=== PATIENT | female | born 1980 | race Caucasian/White ===

== ENCOUNTER 2023-05-17 22:24 | Inpatient (IN) | payer OTHER, SELFPAY ==
--- NOTE | ~2023-05-17 | US_ITS ---
EXAMINATION: US venous doppler [facility] DATE: 05/21/2023 14:46 INDICATION: Left lower limb edema. TECHNIQUE: Grayscale ultrasound images without and with compression and Doppler ultrasound images of the left lower extremity veins were obtained. COMPARISON: Ultrasound 06/07/2008 FINDINGS: The visualized portions of left common femoral vein, profunda (deep) femoral vein, femoral vein, popl iteal vein, peroneal veins, posterior tibial veins, and greater saphenous vein outflow are patent. IMPRESSION: 1. No deep venous thrombosis. Reviewed, dictated and finalized at location A.
--- NOTE | ~2023-05-17 | XR_ITS ---
Left ankle Technique: AP, oblique, and lateral views were obtained. Clinical History: Pain and swelling Findings: No acute fracture or dislocation is seen. Osseous alignment is anatomic. Ankle mortise and other visualized joint spaces are preserved. Diffuse subcutaneous soft tissue edema noted. Impression: No osseous or articular abnormality. Diffuse subcutaneous soft tissue edema. Reviewed, dictated and finalized at [facility]. Impression: No osseous or articular abnormality. Diffuse subcutaneous soft tissue edema.
--- NOTE | ~2023-05-17 | XR_ITS ---
Left foot Technique: AP, oblique, and lateral views were obtained. Clinical History: Pain swelling Findings: No acute fracture or dislocation is seen. Osseous alignment is anatomic. Joint spaces are p reserved without erosive or degenerative change. There is marked dorsal soft tissue swelling of the f oot. Impression: No osseous or articular abnormality seen. Marked dorsal soft tissue swelling of the foot. Reviewed, dictated and finalized at location [facility]. Impression: No osseous or articular abnormality seen. Marked dorsal soft tissue swelling of the foot.
--- NOTE | ~2023-05-17 | MR_ITS ---
MRI of the left foot CLINICAL HISTORY: Wound, osteomyelitis TECHNIQUE: Axial T1-weighted and T2 fat-sat images, sagittal T1-weighted and STIR images, and coronal T1-weighted and T2 fat-sat images were acquired. FINDINGS: Bone marrow signals are unremarkable. No evidence for osteomyelitis. No fracture or bone ma rrow edema seen. Joint spaces are preserved. No joint effusion. Flexor and extensor tendons appear intact. There is mild edematous change of the plantar musculature of the foot. There is marked, diffuse dorsal subcutaneous soft tissue edema fluid extending to the an kle. No definite abscess identified. Plantar fascia is intact. No intermetatarsal bursitis or Carranza' s neuroma. IMPRESSION: No evidence for osteomyelitis or abscess. Marked, diffuse dorsal subcutaneous soft tissue edema extending to the ankle. Reviewed, dictated and finalized at [facility].
--- NOTE | ~2023-05-17 | XR_ITS ---
AP and lateral views of the pain swelling tibia/fibula Clinical History: Trauma Findings: No acute fracture or dislocation is seen. Osseous alignment is anatomic. Joint spaces are p reserved without significant erosive or degenerative change. There is diffuse subcutaneous soft tissu e edema. Impression: Diffuse subcutaneous soft tissue edema. No osseous or articular abnormality. Reviewed, dictated and finalized at [facility]. Impression: Diffuse subcutaneous soft tissue edema. No osseous or articular abnormality.
[2023-05-17 22:26] VITALS: BP 134/82; PULSE 90; RESP 15; TEMP 36.5; O2SAT 100
--- NOTE | 2023-05-17 22:58 | ED.GENADULT ---
HPI - General Adult General Chief complaint: Extremity Problem,Nontraumatic Stated complaint: extrem Time Seen by Provider: 05/17/23 22:48 History of Present Illness HPI narrative: Patient 43-year-old female presents emerged department with chief complaint of cellulitis to left lower extremity. Patient reports she has prior history of cellulitis and is required admissions before in the past with MRSA infections. Patient reports that she was seen in [place] over the weekend and had redness and swelling in her left leg patient thinks that it may have been associated to a wasp sting that she had on the fourth patient reports she had redness up to her thigh and reports that she had redness down to her ankle and the patient reports that the redness in the thigh area has improved but now she has significant edema and swelling of her left foot and reports that it is very red and she reports she had subjective and low-grade fevers at home. The patient reports has been compliant with the doxycycline that she was prescribed at [place] and reported that she is concerned that she may be not improving with the Doxy. Related Data Allergies Allergy/AdvReac Type Severity Reaction Status Date / Time codeine Allergy Unknown ITCHING Verified 02/20/15 10:45 promethazine Allergy Unknown Unknown Verified 05/17/23 22:39 Review of Systems Review of Systems: A 10 system review of systems was completed on the patient and is negative except for what is stated in the HPI. Nursing and ancillary documentation was reviewed. [facility]LY [facility] Family History Family History Other Diabetes mellitus Social History Social History Alcohol intake: never Exam Narrative: GENERAL: Well-appearing, well-nourished, and in no acute distress. HEAD: Normocephalic, atraumatic. EYES: PERRLA and EOMI. ENT: Nares clear, no rhinorrhea or epistaxis. Mucous membranes moist. NECK: Supple. CHEST: Clear to auscultation. No respiratory distress. HEART: Regular rate and rhythm. No murmur heard. Normal peripheral pulses. ABDOMEN: Soft, nontender, nondistended, normal active bowel sounds. EXTREMITIES: Redness and swelling below the knee on the left lower extremity. There is significant edema of the left foot area there is weeping from the tissue there is no crepitance there is no fluctuance present. SKIN: Warm, dry, no rash. NEURO: No focal deficits. Alert and oriented x3. PSYCH: Normal mood and affect. Course Vital Signs Vital signs: Vital Signs Temperature 36.5 C 05/17/23 22:26 Pulse Rate 90 05/17/23 22:26 Respiratory Rate 15 05/17/23 22:26 Blood Pressure 134/82 05/17/23 22:26 Pulse Oximetry 100 05/17/23 22:26 Oxygen Delivery Room Air 05/17/23 22:26 Temperature 36.5 C 05/17/23 22:26 Pulse Rate 62 05/17/23 23:43 Respiratory Rate 18 05/17/23 23:43 Blood Pressure 116/78 05/17/23 23:43 Pulse Oximetry 99 05/17/23 23:43 Oxygen Delivery Room Air 05/17/23 22:26 Medical Decision Making MDM Narrative Medical decision making narrative: Differential diagnosis: Cellulitis, fracture, Laboratory studies were obtained and the patient showed a white count of 8.9 hemoglobin was low at 7.8 electrolytes showed normal lactic acid of 0.6 C-reactive protein was 16.6 and sed rate was elevated as well at 85 urinalysis did show UTI with 21-50 whites in the urine. Patient was empirically started on vancomycin and Zosyn was added to the antibiotic blood cultures have been obtained Plan: X-rays of the ankle foot and tib-fib showed no evidence of fracture and no evidence of gas The case was discussed with Dr. Driscoll of the hospitalist service and the patient will be admitted to the hospital. Vital Signs Vital Signs: Vital Signs Temperature 36.5 C 05/17/23 22:26 Pulse Rate 90 05/17/23 22:26 Respiratory Rate 1
[2023-05-17 23:43] VITALS: BP 116/78; PULSE 62; RESP 18; O2SAT 99
[2023-05-17 23:46] LABS: Basophils Absolute Auto 0.1 K/mm3 (0.0-0.1); Basophils Percent Auto 0.6 % (0.2-1.2); Eosinophils Absolute Auto 0.2 K/mm3 (0-0.3); Eosinophils Percent Auto 2.1 % (0-4.4); Hematocrit 26.4 % (37.0-47.0); Hemoglobin 7.8 g/dL (12.0-15.0); Immature Granulocyte Absolute 0.08 K/mm3 (0.00-0.031); Immature Granulocyte Percent A 0.9 % (0-0.5); Lymphocytes Absolute Auto 1.82 K/mm3 (0.9-3.2); Lymphocytes Percent Auto 20.5 % (18.3-44.2); Mean Corpuscular HGB Conc 29.5 g/dl (32-36); Mean Corpuscular Hemoglobin 20.3 pg (26-34); Mean Corpuscular Volume 68.6 fl (80-100); Mean Platelet Volume 10.9 fl (7.4-10.4); Monocytes Absolute Auto 1.2 K/mm3 (0.1-0.6); Neutrophils Absolute Auto 5.6 K/mm3 (1.3-6.7); Neutrophils Percent Auto 62.9 % (45.5-73.1); Platelet Count Result 346 k/mm3 (150-375); Red Blood Count 3.85 M/mm3 (4.2-5.4); Red Cell Distribution Width 18.1 % (11.5-14.5); White Blood Count 8.9 K/mm3 (4.5-10.0)
[2023-05-17] MEDS: SODIUM CHLORIDE 0.9% IV 1,000 ML 999 ML IV CONT (23:47)
[2023-05-17] MEDS: MORPHINE SULFATE (*CRX) 4 MG/ML INJ IV PUSH (23:48)
[2023-05-17 23:53] LABS: Appearance Urine Cloudy (Clear); Bacteria Urine 2+ /hpf; Bilirubin Urine 1+ (Negative); Blood Urine Negative (Negative); Color Urine Dark Yellow (Yellow); Glucose Urine UA Negative (Negative); Ketones Urine Trace mg/dL (Negative); Leukocyte Esterase Ur 1+ LEU/UL (Negative); Nitrate Urine Negative (Negative); Non Pathogenic Casts 0-2; Protein Urine Trace mg/dL (Negative); RBC Urine 0-2 /hpf (0-2); Specific Grav Ur 1.023 (1.001-1.035); Squamous Epithelial Cell Urine Moderate /hpf (Few); WBC Urine 21-50 /hpf
[2023-05-17 23:59] LABS: Add Urine Microscopic? YES
[2023-05-18] VITALS (7 sets, daily range): BP systolic 92–117; BP diastolic 50–71; PULSE 55–97; RESP 14–22; TEMP 36.6–36.8; O2SAT 98–100; BMI 35.9
[2023-05-18 00:04] LABS: Anisocytosis 1+ (NORMAL); Lactic Acid Reflex 0.6 mmol/L (0.7-2.0); Platelet Estimate Adequate (Adequate); Poikilocytosis 1+ (NORMAL); Schistocytes None Seen (NORMAL)
[2023-05-18 00:05] LABS: Hypochromasia 1+ (NORMAL)
[2023-05-18 00:08] LABS: Alanine Aminotransferase 22 U/L (6-35); Albumin Level 4.1 g/dL (3.5-5.1); Alkaline Phosphatase 45 U/L (38-126); Anion Gap 7 mmol/L (8-16); Aspartate Amino Transferase 43 U/L (14-36); Bilirubin,Total 0.4 mg/dL (0.2-1.3); Blood Urea Nitrogen 19 mg/dL (7-17); Calcium 8.2 mg/dL (8.4-10.2); Carbon Dioxide 26 mmol/L (22-30); Chloride 104 mmol/L (98-107); Estimated CRCL calculation 96 ml/min; Estimated Glomerular Filt Rate > 60; Glucose 94 mg/dL (65-110); Potassium 3.9 mmol/L (3.4-5.0); Sodium 137 mmol/L (137-145)
[2023-05-18 00:29] LABS: Erythrocyte Sedimentation Rate 85 mm/hr (0-20)
[2023-05-18 00:35] LABS: CRP 16.6 mg/dL (<1.0)
[2023-05-18] MEDS: PIPERACILLN/TAZ 3.375GM/NS50ML 3.375 GM/50 ML BAG IVPB ×4 (00:55→18:56)
--- NOTE | 2023-05-18 01:29 | PM.IMHP ---
H&P: HPI History of Present Illness Date/Time: 05/18/23 01:29 Chief Complaint: Leg tenderness Narrative: This is a 43-year-old female with past medical history significant for obesity, patient is status post gastric bypass. Presents today to the emergency room due to left lower extremity tenderness warmth erythema that started on went to [place] and was started on doxycycline and discharged home however patient has notice worsening of these redness swelling and tenderness has had chills, nausea and vomiting. PRELIMINARY WORKUP WAS SIGNIFICANT FOR A HEMOGLOBIN OF 7.8 MCV OF 68, A URINALYSIS WAS SIGNIFICANT FOR NUMEROUS WBCS PRESENT. PATIENT HAS BEEN ADMITTED FOR FURTHER EVALUATION MANAGEMENT AND TREATMENT. Review of Systems Review of Systems: LEFT LOWER EXTREMITY REDNESS, WARMTH, TENDERNESS, SWELLING Constitutional: Constitutional: Reports chills, Denies fatigue, Reports malaise, Denies night sweats and Denies poor appetite Eyes: Eyes: Denies change in vision ENT: Denies dysphagia and Denies odynophagia Cardiovascular: Cardiovascular: Denies chest pain, Denies radiating jaw, neck or arm pain and Denies palpitations Respiratory: Respiratory: Denies cough, Denies excessive phlegm production and Denies dyspnea Gastrointestinal: Gastrointestinal: Denies abdominal pain, Denies dyspepsia, Denies heartburn, Denies diarrhea, Denies nausea and Denies vomiting Genitourinary: Genitourinary: Reports no additional female genitourinary complaints, Reports as per HPI and Denies dysuria Musculoskeletal: Musculoskeletal: Denies myalgias Integumentary/Breasts: Skin/Breast: Reports erythema, Reports skin pain and Reports skin swelling Neurologic: Denies focal weakness and Denies Sensory deficit (Neuro) Psychiatric: Psychiatric: Reports no additional psychiatric complaints and Reports as per HPI Endocrine: Endocrine: Denies cold intolerance, Denies flushing, Denies heat intolerance, Denies polyphagia, Denies polydipsia and Denies palpitations Hematologic/Lymphatic: Hematologic/Lymphatic: Reports no additional hematologic/lymphatic complaints and Reports as per HPI Allergic/Immunologic: Allergic/Immunologic: Reports no additional allergic/immunologic complaints and Reports as per HPI PMF Family History Family History Other Diabetes mellitus Social History Social History Smoking status: Never smoker Alcohol intake: never Substance use type: other Other substance usage details: THC Last use: 05/15/2023 Lack of Transportation: No Lack of Food: Never True Current Housing: I Have Housing Concerned About Future Housing: No Difficulty Paying Gas/Electric Bills: No Difficulty Paying for Meds: No Currently Unemployed: No Education: High School Diploma/GED Difficulty w/ Childcare or Family Care: No Spiritual care concerns: No Meds Home Medications and Allergies Home Medications Medication Instructions Recorded Confirmed Type buspirone 10 mg tablet 10 mg PO BID 05/18/23 05/18/23 History citalopram 40 mg tablet 40 mg PO QAM 05/18/23 05/18/23 History doxycycline hyclate 100 mg capsule 100 mg PO BID 05/18/23 05/18/23 History etonogestrel 68 mg subdermal 1 implant subdermal PER PKG DIR 05/18/23 05/18/23 History implant (Nexplanon) ondansetron 4 mg disintegrating 4 mg PO Q4H PRN Nausea 05/18/23 05/18/23 History tablet trazodone 100 mg tablet 100 mg PO QHS PRN Insomnia 05/18/23 05/18/23 History Allergies Allergy/AdvReac Type Severity Reaction Status Date / Time codeine Allergy Unknown ITCHING Verified 02/20/15 10:45 promethazine Allergy Unknown Unknown Verified 05/17/23 22:39 Vital Signs Vital Signs - 24 hr 05/17/23 22:26 05/17/23 23:43 05/18/23 00:57 Temperature 97.7 F Pulse Rate 90 62 97 Respiratory Rate 15 18 15 Blood Pressure 134/82 116/78
--- NOTE | 2023-05-18 01:42 | ADMGEN ---
This patient, Suze Piper, was admitted to Medical Room 342-01. Patient/family oriented to hospital policies and general routines including ID bracelet, bed and alarms, visiting hours, pain management, procedures, bathroom and other care routines, personal items, smoking policy, room service/diet, and visiting hours. Information on how to activate the Rapid Response Team has been discussed. Patient/Family are encouraged to report perceived risks to care and to ask questions if they do not understand what they are told or what they should do.
[2023-05-18 01:52] LABS: Procalcitonin 0.3 ng/mL
[2023-05-18] MEDS: MORPHINE SULFATE (*CRX) 4 MG/ML INJ IV PUSH ×4 (03:01→20:08)
[2023-05-18] MEDS: CITALOPRAM HYDROBROMIDE 20 MG TABLET 40 MG PO (08:41)
[2023-05-18] MEDS: busPIRone HCL 10 MG TABLET PO ×2 (08:41→17:17)
--- NOTE | 2023-05-18 08:55 | PM.IMPN ---
Progress Note: A&P Assessment and Plan (1) Cellulitis: Code(s): L03.90 - Cellulitis, unspecified Status: Acute Assessment and Plan: Started on vancomycin and Zosyn 05/17 MRSA screen pending Concer for underlying osteo vs allergic reaction decadron + lasix and assess due to significant soft tissue swelling (2) Hypochromic microcytic anemia: Code(s): D50.9 - Iron deficiency anemia, unspecified Status: Acute Assessment and Plan: Hemoglobin 7.8, unknown baseline Check iron studies, B12, B1, folate, vitamin D update: severely low iron, normal B12, folate and vitamin d, low magnesium, give venofer and start ferrous fumarate at d/c due to h/o bypass surgery, also give mag 2 g IV and start magox at d/c (3) History of gastric bypass: Code(s): Z98.84 - Bariatric surgery status Status: Acute Assessment and Plan: Check magnesium, phosphorous see above Plan DVT prophylaxis with SCDs GI prophylaxis not indicated Code status full code Subjective Date/time seen: 05/18/23 08:55 Interval history: 43-year-old female with history of obesity status past gastric bypass surgery is presenting with lower extremity warmth and being treated for possible cellulitis. No overnight events noted. No chest pain or shortness of breath. No nausea, vomiting or diarrhea. No fevers or chills. Significant swelling since after getting stung by a wasp. Also noted trauma a few weeks ago. Area on top of great left toe with redness and point tenderness noted yesterday. Review of Systems Review of Systems: 12 point review of systems was assessed and was negative except as noted in the HPI Exam Narrative: General: No acute distress, alert and oriented per baseline HEENT: Atraumatic, normocephalic, mucous membranes moist CV: Regular rate and rhythm, S1, S2 Lungs: Clear to auscultation bilaterally, no rales or crackles noted, no wheezes, good air entry Abdomen: Soft, nontender, nondistended Extremities: B/L lymphedema noted, LLE with significant non pitting edema, erythema from mid tibia distal. area of erythema and exquisite point tenderness of top of great toe on left foot, some streaking and purpura noted, blanches with light touch Psych: Euthymic, normal affect Objective Data Vital Signs Vital Signs: Vital Signs - 24 hr 05/17/23 22:26 05/17/23 23:43 05/18/23 00:57 Temperature 97.7 F Pulse Rate 90 62 97 Respiratory Rate 15 18 15 Blood Pressure 134/82 116/78 102/62 Pulse Oximetry 100 99 100 Oxygen Delivery Room Air 05/18/23 01:34 05/18/23 02:10 05/18/23 05:43 Temperature 97.9 F 97.9 F Pulse Rate 55 L 63 Respiratory Rate 20 22 H Blood Pressure 103/68 92/50 L Pulse Oximetry 100 98 Oxygen Delivery Room Air Intake/Output Intake/Output: Intake & Output 05/15/23 05/16/23 05/17/23 05/18/23 23:59 23:59 23:59 23:59 Intake Total 1625 Balance 1625 Meds/Results Medications: Active Medications Generic Name Dose Route Start Last Admin Trade Name Freq PRN Reason Stop Dose Admin Buspirone HCl 10 mg 05/18/23 09:00 05/18/23 08:41 Buspirone Hcl 10 Mg Tablet PO 10 mg BID TALAT Administration Citalopram Hydrobromide 40 mg 05/18/23 09:00 05/18/23 08:41 Citalopram Hydrobromide 20 Mg Tablet PO 40 mg QAM TALAT Administration Vancomycin HCl 1,500 mg in 500 mls @ 250 mls/hr 05/18/23 01:00 05/18/23 05:52 Vancomycin 1,500 Mg/D5w 500 Ml IVPB Infused Q12H TALAT Infusion Piperacillin/Tazobactam/Dextrose 3.375 gm in 50 mls @ 100 mls/hr 05/18/23 06:00 05/18/23 06:47 Zosyn 3.375 Gm/Ns 50 Ml IVPB 100 mls/hr Q6HR TALAT Administration Morphine Sulfate 4 mg 05/18/23 00:44 05/18/23 06:17 Morphine Sulfate (*Crx) 4 Mg/Ml Inj IV PUSH 4 mg Q2H PRN Administration Pain Rated 7-10 Ondansetron HCl 4 mg 05/18/23 00:44 Ondansetron Inj 4 Mg/2 Ml Vial IV PUSH Q4H PRN Nausea
[2023-05-18 09:29] LABS: Basophils Absolute Auto 0.1 K/mm3 (0.0-0.1); Basophils Percent Auto 0.8 % (0.2-1.2); Eosinophils Absolute Auto 0.2 K/mm3 (0-0.3); Eosinophils Percent Auto 2.1 % (0-4.4); Hematocrit 30.1 % (37.0-47.0); Hemoglobin 8.6 g/dL (12.0-15.0); Immature Granulocyte Absolute 0.09 K/mm3 (0.00-0.031); Immature Granulocyte Percent A 1.1 % (0-0.5); Lymphocytes Absolute Auto 1.71 K/mm3 (0.9-3.2); Lymphocytes Percent Auto 20.2 % (18.3-44.2); Mean Corpuscular HGB Conc 28.6 g/dl (32-36); Mean Corpuscular Hemoglobin 20.1 pg (26-34); Mean Corpuscular Volume 70.3 fl (80-100); Mean Platelet Volume 10.4 fl (7.4-10.4); Monocytes Absolute Auto 0.7 K/mm3 (0.1-0.6); Monocytes Percent Auto 7.9 % (2.6-8.5); Neutrophils Absolute Auto 5.7 K/mm3 (1.3-6.7); Neutrophils Percent Auto 67.9 % (45.5-73.1); Platelet Count Result 354 k/mm3 (150-375); Red Blood Count 4.28 M/mm3 (4.2-5.4); Red Cell Distribution Width 18.2 % (11.5-14.5); White Blood Count 8.5 K/mm3 (4.5-10.0)
[2023-05-18 09:46] LABS: Alanine Aminotransferase 22 U/L (6-35); Albumin Level 4.3 g/dL (3.5-5.1); Alkaline Phosphatase 56 U/L (38-126); Anion Gap 11 mmol/L (8-16); Aspartate Amino Transferase 28 U/L (14-36); Bilirubin,Total 0.4 mg/dL (0.2-1.3); Blood Urea Nitrogen 12 mg/dL (7-17); Calcium 8.4 mg/dL (8.4-10.2); Carbon Dioxide 26 mmol/L (22-30); Chloride 104 mmol/L (98-107); Estimated CRCL calculation 96 ml/min; Estimated Glomerular Filt Rate > 60; Glucose 92 mg/dL (65-110); Magnesium 1.4 mg/dL (1.6-2.3); Phosphorus 3.7 mg/dL (2.5-4.5); Potassium 3.1 mmol/L (3.4-5.0); Sodium 141 mmol/L (137-145)
[2023-05-18 09:48] LABS: Schistocytes 1+ (NORMAL)
[2023-05-18 09:49] LABS: Hypochromasia 2+ (NORMAL); Ovalocytes 2+ (NORMAL)
[2023-05-18 09:50] LABS: Burr Cells 2+ (NORMAL)
[2023-05-18 10:01] LABS: Iron 30 ug/dL (37-170)
[2023-05-18 10:11] LABS: Percent Iron Saturation 7 % (20-50)
[2023-05-18 10:17] LABS: Procalcitonin 0.2 ng/mL
[2023-05-18 10:31] LABS: Vitamin D 25 Hydroxy 75.7 ng/mL
[2023-05-18 10:48] LABS: Folic Acid > 20.0 ng/mL (2.76->20)
[2023-05-18] MEDS: POTASSIUM CHLORIDE 20 MEQ ER TABLET 40 MEQ PO (12:59)
[2023-05-18] MEDS: FUROSEMIDE INJ 40 MG/4 ML VIAL IV PUSH (13:00)
[2023-05-18] MEDS: DEXAMETHASONE 4 MG TABLET PO (13:00)
[2023-05-18] MEDS: MAGNESIUM SULF 2 GM/WATER 50ML 2 GM/50 ML BAG IVPB (13:00)
[2023-05-18] MEDS: POTASSIUM CHLORIDE INJ 40 MEQ in SODIUM CHLORIDE 0.9% IV 500 ML 130 MEQ IVPB (15:10)
[2023-05-18] MEDS: IRON SUCROSE COMPLEX 500 MG in SODIUM CHLORIDE 0.9% IV 250 ML 78.57 MG IVPB (15:18)
[2023-05-19] MEDS: PIPERACILLN/TAZ 3.375GM/NS50ML 3.375 GM/50 ML BAG IVPB ×5 (00:48→23:43)
[2023-05-19] MEDS: MORPHINE SULFATE (*CRX) 4 MG/ML INJ IV PUSH ×7 (01:52→22:17)
[2023-05-19 06:00] VITALS: BP 118/68; PULSE 80; RESP 20; TEMP 36.7; O2SAT 100
[2023-05-19 06:00] LABS: Basophils Absolute Auto 0.1 K/mm3 (0.0-0.1); Basophils Percent Auto 0.5 % (0.2-1.2); Eosinophils Percent Auto 0.2 % (0-4.4); Hematocrit 27.4 % (37.0-47.0); Hemoglobin 7.8 g/dL (12.0-15.0); Immature Granulocyte Absolute 0.28 K/mm3 (0.00-0.031); Immature Granulocyte Percent A 2.7 % (0-0.5); Lymphocytes Absolute Auto 1.31 K/mm3 (0.9-3.2); Lymphocytes Percent Auto 12.7 % (18.3-44.2); Mean Corpuscular HGB Conc 28.5 g/dl (32-36); Mean Corpuscular Hemoglobin 19.8 pg (26-34); Mean Corpuscular Volume 69.5 fl (80-100); Mean Platelet Volume 10.3 fl (7.4-10.4); Monocytes Percent Auto 9.7 % (2.6-8.5); Neutrophils Absolute Auto 7.7 K/mm3 (1.3-6.7); Neutrophils Percent Auto 74.2 % (45.5-73.1); Platelet Count Result 371 k/mm3 (150-375); Red Blood Count 3.94 M/mm3 (4.2-5.4); Red Cell Distribution Width 17.8 % (11.5-14.5); White Blood Count 10.3 K/mm3 (4.5-10.0)
[2023-05-19 06:13] LABS: Alanine Aminotransferase 18 U/L (6-35); Albumin Level 3.7 g/dL (3.5-5.1); Alkaline Phosphatase 51 U/L (38-126); Anion Gap 5 mmol/L (8-16); Aspartate Amino Transferase 24 U/L (14-36); Bilirubin,Total 0.3 mg/dL (0.2-1.3); Blood Urea Nitrogen 7 mg/dL (7-17); Carbon Dioxide 28 mmol/L (22-30); Chloride 108 mmol/L (98-107); Estimated CRCL calculation 111 ml/min; Estimated Glomerular Filt Rate > 60; Glucose 97 mg/dL (65-110); Potassium 3.5 mmol/L (3.4-5.0); Sodium 141 mmol/L (137-145)
[2023-05-19 06:58] LABS: Anisocytosis 2+ (NORMAL); Hypochromasia 2+ (NORMAL); Large Platelets Present; Microcytosis 2+ (NORMAL); Platelet Estimate Adequate (Adequate); Schistocytes None Seen (NORMAL)
[2023-05-19 08:06] VITALS: O2SAT 99
[2023-05-19 08:21] LABS: Hemoglobin A1C 5.5 % (<5.7)
[2023-05-19] MEDS: DEXAMETHASONE 4 MG TABLET PO (09:04)
[2023-05-19] MEDS: busPIRone HCL 10 MG TABLET PO ×2 (09:04→16:14)
[2023-05-19] MEDS: CITALOPRAM HYDROBROMIDE 20 MG TABLET 40 MG PO (09:04)
[2023-05-19] MEDS: MAGNESIUM OXIDE 400 MG TABLET PO (09:04)
--- NOTE | 2023-05-19 09:14 | PC.NURSE ---
RN called Diana Camilo regarding placing another IV access. Pt has many antibiotics and iron to be infused. Vancomycin infusing first with iron to follow. RN to check with hospitalist to see if a PICC line would be appropriate. BC negative to date.
--- NOTE | 2023-05-19 10:45 | PM.IMPN ---
Progress Note: A&P Assessment and Plan (1) Cellulitis: Code(s): L03.90 - Cellulitis, unspecified Status: Acute Assessment and Plan: Started on vancomycin and Zosyn 05/17 MRSA screen pending Concern for underlying osteo vs allergic reaction low, MRI negative 05/18: Decadron + lasix given x 1 and assess due to significant soft tissue swelling 05/19: Continue IV antibiotics, seems to be somewhat improving, another dose of Lasix and Decadron to be given today, then p.r.n., consult Orthopedic surgery due to worsening wound noted at great toe on the left concerning for septic joint (2) Hypochromic microcytic anemia: Code(s): D50.9 - Iron deficiency anemia, unspecified Status: Acute Assessment and Plan: Hemoglobin 7.8, unknown baseline Check iron studies, B12, B1, folate, vitamin D 05/18: severely low iron, normal B12, folate and vitamin d, low magnesium, give venofer and start ferrous fumarate at d/c due to h/o bypass surgery, also give mag 2 g IV and start magox at d/c (3) History of gastric bypass: Code(s): Z98.84 - Bariatric surgery status Status: Acute Assessment and Plan: Low magnesium, low iron noted, replacement initiated as above Plan DVT prophylaxis with SCDs GI prophylaxis not indicated Code status full code Subjective Date/time seen: 05/19/23 10:45 Interval history: 43-year-old female with history of obesity status past gastric bypass surgery is presenting with lower extremity warmth and being treated for possible cellulitis. No overnight events noted. No chest pain or shortness of breath. No nausea, vomiting or diarrhea. No fevers or chills. Swelling appears somewhat improved from yesterday. Patient states the pain is a little better than yesterday. Review of Systems Review of Systems: 12 point review of systems was assessed and was negative except as noted in the HPI Exam Narrative: General: No acute distress, alert and oriented per baseline HEENT: Atraumatic, normocephalic, mucous membranes moist CV: Regular rate and rhythm, S1, S2 Lungs: Clear to auscultation bilaterally, no rales or crackles noted, no wheezes, good air entry Abdomen: Soft, nontender, nondistended Extremities: B/L lymphedema noted, LLE with significant non pitting edema, erythema from mid tibia distal. area of erythema and exquisite point tenderness of top of great toe on left foot, some streaking and purpura noted, blanches with light touch Psych: Euthymic, normal affect Objective Data Vital Signs Vital Signs: Vital Signs - 24 hr 05/18/23 14:00 05/18/23 20:45 05/18/23 20:00 Temperature 98.1 F 98.2 F Pulse Rate 69 60 Respiratory Rate 14 20 Blood Pressure 117/71 108/69 Pulse Oximetry 100 99 Oxygen Delivery Room Air 05/19/23 06:00 05/19/23 08:06 05/19/23 09:20 Temperature 98.1 F Pulse Rate 80 Respiratory Rate 20 Blood Pressure 118/68 Pulse Oximetry 100 99 Oxygen Delivery Room Air Room Air Intake/Output Intake/Output: Intake & Output 05/16/23 05/17/23 05/18/23 05/19/23 23:59 23:59 23:59 23:59 Intake Total 4015 290 Balance 4015 290 Meds/Results Medications: Active Medications Generic Name Dose Route Start Last Admin Trade Name Inocencioq PRN Reason Stop Dose Admin Buspirone HCl 10 mg 05/18/23 09:00 05/19/23 09:04 Buspirone Hcl 10 Mg Tablet PO 10 mg BID TALAT Administration Citalopram Hydrobromide 40 mg 05/18/23 09:00 05/19/23 09:04 Citalopram Hydrobromide 20 Mg Tablet PO 40 mg QAM TALAT Administration Dexamethasone 4 mg 05/18/23 11:30 05/19/23 09:04 Dexamethasone 4 Mg Tablet PO 4 mg DAILY@0800 TALAT Administration Ferrous Fumarate 324 mg 05/19/23 08:00 05/19/23 09:05 Ferrous Fumarate 324 Mg (106 Mg Iron) Tablet PO 324 mg DAILY@0800 TALAT Administration Vancomycin HCl 1,500 mg in 500 mls @ 250 mls/hr 05/18/23 01:00 05/19/23 09:04 Vancomycin 1,500 Mg/D5w 5
[2023-05-19] MEDS: IRON SUCROSE COMPLEX 500 MG in SODIUM CHLORIDE 0.9% IV 250 ML 78.57 MG IVPB (11:21)
[2023-05-19] MEDS: POTASSIUM CHLORIDE 20 MEQ ER TABLET 40 MEQ PO (11:21)
[2023-05-19 12:56] LABS: Magnesium 2.1 mg/dL (1.6-2.3)
[2023-05-19] MEDS: LIDOCAINE HCL 1% PF INJ 5 ML VIAL INFILTRATE (13:50)
[2023-05-19] MEDS: FUROSEMIDE INJ 40 MG/4 ML VIAL IV PUSH (15:07)
[2023-05-19 15:48] VITALS: BP 119/76; PULSE 65; RESP 16; TEMP 36.2; O2SAT 99
--- NOTE | 2023-05-19 16:36 | PC.NURSE ---
per pharmacy, RN to hang Zosyn an hour later than scheduled time d/t noon dose being late. Noon dose was late d/t no IV access and PICC line being put in.
[2023-05-19] MEDS: CENTRAL LINE FLUSH 10 ML IV PUSH (20:14)
[2023-05-19 20:54] VITALS: BP 138/75; PULSE 59; RESP 18; TEMP 36.3; O2SAT 100
[2023-05-19] MEDS: PANTOPRAZOLE 40 MG TABLET PO (21:14)
[2023-05-19 21:50] LABS: Vancomycin Trough 15.3 ug/mL (10.0-20.0)
[2023-05-19] MEDS: VANCOMYCIN 1,250 MG/NS 250 ML 1,250 MG/250 ML BAG 166.67 MG IVPB (22:12)
[2023-05-20 05:04] VITALS: BP 103/59; PULSE 66; RESP 16; TEMP 36.7; O2SAT 95
[2023-05-20] MEDS: PIPERACILLN/TAZ 3.375GM/NS50ML 3.375 GM/50 ML BAG IVPB ×2 (05:10→12:42)
[2023-05-20] MEDS: CENTRAL LINE FLUSH 10 ML IV PUSH ×3 (05:10→20:55)
[2023-05-20] MEDS: MORPHINE SULFATE (*CRX) 4 MG/ML INJ IV PUSH ×2 (05:16→14:32)
[2023-05-20 05:23] LABS: Basophils Absolute Auto 0.1 K/mm3 (0.0-0.1); Basophils Percent Auto 0.8 % (0.2-1.2); Eosinophils Absolute Auto 0.1 K/mm3 (0-0.3); Hematocrit 27.1 % (37.0-47.0); Hemoglobin 7.7 g/dL (12.0-15.0); Immature Granulocyte Absolute 1.66 K/mm3 (0.00-0.031); Immature Granulocyte Percent A 12.5 % (0-0.5); Lymphocytes Absolute Auto 2.58 K/mm3 (0.9-3.2); Lymphocytes Percent Auto 19.5 % (18.3-44.2); Mean Corpuscular HGB Conc 28.4 g/dl (32-36); Mean Corpuscular Hemoglobin 20.1 pg (26-34); Mean Corpuscular Volume 70.8 fl (80-100); Mean Platelet Volume 9.8 fl (7.4-10.4); Monocytes Absolute Auto 1.3 K/mm3 (0.1-0.6); Monocytes Percent Auto 9.8 % (2.6-8.5); Neutrophils Absolute Auto 7.5 K/mm3 (1.3-6.7); Neutrophils Percent Auto 56.4 % (45.5-73.1); Nucleated Red Blood Cells Perc 0.3 % (0.0-0.2); Platelet Count Result 362 k/mm3 (150-375); Red Blood Count 3.83 M/mm3 (4.2-5.4); Red Cell Distribution Width 17.9 % (11.5-14.5); White Blood Count 13.3 K/mm3 (4.5-10.0)
[2023-05-20 05:46] LABS: Alanine Aminotransferase 20 U/L (6-35); Albumin Level 3.6 g/dL (3.5-5.1); Alkaline Phosphatase 49 U/L (38-126); Anion Gap 3 mmol/L (8-16); Aspartate Amino Transferase 39 U/L (14-36); Bilirubin,Total 0.3 mg/dL (0.2-1.3); Blood Urea Nitrogen 11 mg/dL (7-17); Calcium 8.7 mg/dL (8.4-10.2); Carbon Dioxide 32 mmol/L (22-30); Chloride 107 mmol/L (98-107); Estimated CRCL calculation 63 ml/min; Estimated Glomerular Filt Rate 54; Glucose 98 mg/dL (65-110); Potassium 3.7 mmol/L (3.4-5.0); Sodium 142 mmol/L (137-145)
[2023-05-20 06:07] LABS: Procalcitonin 0.2 ng/mL
[2023-05-20 06:11] LABS: CRP 2.9 mg/dL (<1.0)
[2023-05-20 06:37] LABS: Anisocytosis 1+ (NORMAL); Hypochromasia 2+ (NORMAL); Schistocytes None Seen (NORMAL); Target Cells 1+ (NORMAL)
[2023-05-20] MEDS: PANTOPRAZOLE 40 MG TABLET PO (09:08)
[2023-05-20] MEDS: DEXAMETHASONE 4 MG TABLET PO (09:09)
[2023-05-20] MEDS: MAGNESIUM OXIDE 400 MG TABLET PO (09:09)
[2023-05-20] MEDS: busPIRone HCL 10 MG TABLET PO ×2 (09:09→17:59)
[2023-05-20] MEDS: CITALOPRAM HYDROBROMIDE 20 MG TABLET 40 MG PO (09:09)
[2023-05-20] MEDS: IRON SUCROSE COMPLEX 500 MG in SODIUM CHLORIDE 0.9% IV 250 ML 78.57 MG IVPB (09:09)
[2023-05-20 09:10] VITALS: PULSE 66; RESP 16; O2SAT 95
[2023-05-20] MEDS: ONDANSETRON INJ 4 MG/2 ML VIAL IV PUSH (09:48)
[2023-05-20] MEDS: VANCOMYCIN 1,250 MG/NS 250 ML 1,250 MG/250 ML BAG 166.67 MG IVPB (11:45)
[2023-05-20 14:18] VITALS: BP 125/70; PULSE 58; RESP 18; TEMP 37.1; O2SAT 100
--- NOTE | 2023-05-20 15:17 | PM.IMPN ---
Progress Note: A&P Assessment and Plan (1) Cellulitis: Code(s): L03.90 - Cellulitis, unspecified Status: Acute Assessment and Plan: Started on vancomycin and Zosyn 05/17. Concern for underlying osteo vs allergic reaction. 05/18: Left foot MRI negative for osteomyelitis. Decadron + lasix given x 1 and assess due to significant soft tissue swelling 05/19: Continue IV antibiotics, seems to be somewhat improving, another dose of Lasix and Decadron to be given today, then p.r.n., consult Orthopedic surgery due to worsening wound noted at great toe on the left concerning for septic joint 05/20: BCx NGTD. MRSA screen negative. UCx mixed jacque. Cr 1.1 today was 0.6 yesterday). Minimal erythema noted at this point. WBC higher related to the steroids but CRP much improved. Elevated LLE. Stop steroids. Concerned that antibiotics affecting renal function. Change to oral doxycycline. Monitor renal function. Stop morphine since may be contributing to her nausea. (2) Hypochromic microcytic anemia: Code(s): D50.9 - Iron deficiency anemia, unspecified Status: Acute Assessment and Plan: Hemoglobin 7.8, unknown baseline. Iron studies consistent with iron deficiency anemia. She received IV iron and is now on oral iron replacement form of ferrous fumarate. (3) History of gastric bypass: Code(s): Z98.84 - Bariatric surgery status Status: Acute Assessment and Plan: Low magnesium, low iron noted, replacement initiated as above Plan DVT prophylaxis with SCDs GI prophylaxis not indicated Code status full code Subjective Date/time seen: 05/20/23 15:17 Interval history: 43-year-old female with history of obesity status past gastric bypass surgery is presenting with lower extremity warmth and being treated for possible cellulitis. Assuming care. Chart reviewed. Having abdominal pain with nausea. Still with pain to the left lower leg but redness better. Still edematous. She was unaware that she was anemic. Voiding well. Exam Narrative: AF 98.7 1125/70 58 18 100% Gen - NARD Chest - CTA bilaterally, nml RR CV - RRR S1/S2 Abd - Soft, NT/ND, Positive BS Ext - B/L lymphedema noted, LLE with 1-2+ pitting edema. Psych - Nml mood and affect Skin - No erythema to the left LE except with mild erythema and small tense blister at the tip of the left great toe Objective Data Vital Signs Vital Signs: Vital Signs - 24 hr 05/19/23 15:48 05/19/23 20:54 05/20/23 05:04 Temperature 97.2 F L 97.4 F L 98.1 F Pulse Rate 65 59 L 66 Respiratory Rate 16 18 16 Blood Pressure 119/76 138/75 103/59 L Pulse Oximetry 99 100 95 Oxygen Delivery 05/20/23 09:10 05/20/23 14:18 Temperature 98.7 F Pulse Rate 66 58 L Respiratory Rate 16 18 Blood Pressure 125/70 Pulse Oximetry 95 100 Oxygen Delivery Room Air Intake/Output Intake/Output: Intake & Output 05/17/23 05/18/23 05/19/23 05/20/23 23:59 23:59 23:59 23:59 Intake Total 4290 2495 460 Balance 4290 2495 460 Meds/Results Medications: Active Medications Generic Name Dose Route Start Last Admin Trade Name Norm PRN Reason Stop Dose Admin Buspirone HCl 10 mg 05/18/23 09:00 05/20/23 09:09 Buspirone Hcl 10 Mg Tablet PO 10 mg BID TALAT Administration Citalopram Hydrobromide 40 mg 05/18/23 09:00 05/20/23 09:09 Citalopram Hydrobromide 20 Mg Tablet PO 40 mg QAM TALAT Administration Dexamethasone 4 mg 05/18/23 11:30 05/20/23 09:09 Dexamethasone 4 Mg Tablet PO 4 mg DAILY@0800 TALAT Administration Ferrous Fumarate 324 mg 05/19/23 08:00 05/20/23 09:09 Ferrous Fumarate 324 Mg (106 Mg Iron) Tablet PO 324 mg DAILY@0800 TALAT Administration Piperacillin/Tazobactam/Dextrose 3.375 gm in 50 mls @ 100 mls/hr 05/18/23 06:00 05/20/23 12:42 Zosyn 3.375 Gm/Ns 50 Ml IVPB 100 mls/hr Q6HR TALAT Administration Vancomycin HCl 1,250 mg in 250 mls @ 166.667 mls/hr 05/19/23 23:00 05/20/23 1
[2023-05-20] MEDS: ACETAMINOPHEN 325 MG TABLET 650 MG PO (18:55)
[2023-05-20] MEDS: DOXYCYCLINE HYCLATE 100 MG TABLET PO (20:55)
[2023-05-20 20:57] VITALS: BP 128/81; PULSE 68; RESP 16; TEMP 37.1; O2SAT 99
[2023-05-21] MEDS: CENTRAL LINE FLUSH 10 ML IV PUSH (05:05)
[2023-05-21 05:07] VITALS: BP 140/85; PULSE 73; RESP 16; TEMP 36.4; O2SAT 100
[2023-05-21] MEDS: ACETAMINOPHEN 325 MG TABLET 650 MG PO (05:13)
[2023-05-21 05:54] LABS: Hematocrit 29.2 % (37.0-47.0); Hemoglobin 8.2 g/dL (12.0-15.0); Mean Corpuscular HGB Conc 28.1 g/dl (32-36); Mean Corpuscular Hemoglobin 19.7 pg (26-34); Mean Corpuscular Volume 70.2 fl (80-100); Mean Platelet Volume 10.1 fl (7.4-10.4); Platelet Count Result 427 k/mm3 (150-375); Red Blood Count 4.16 M/mm3 (4.2-5.4); Red Cell Distribution Width 17.9 % (11.5-14.5); White Blood Count 14.4 K/mm3 (4.5-10.0)
[2023-05-21 06:03] LABS: Anion Gap 4 mmol/L (8-16); Blood Urea Nitrogen 13 mg/dL (7-17); Calcium 8.8 mg/dL (8.4-10.2); Carbon Dioxide 29 mmol/L (22-30); Chloride 111 mmol/L (98-107); Estimated CRCL calculation 58 ml/min; Estimated Glomerular Filt Rate 49; Glucose 102 mg/dL (65-110); Potassium 3.4 mmol/L (3.4-5.0); Sodium 144 mmol/L (137-145)
[2023-05-21 06:40] LABS: Band Neutrophils Percent 1 % (0-6); Basophils Absolute Manual 0.28 K/mm3 (0.0-0.1); Basophils Percent Manual 2 % (0-1); Eosinophils Absolute Manual 0.14 K/mm3 (0.02-0.5); Eosinophils Percent Manual 1 % (0-4); Giant Platelets Present; Hypochromasia 2+ (NORMAL); Large Platelets Present; Lymphocytes Absolute Manual 1.87 K/mm3 (1.1-4.5); Metamyelocytes Percent 6 %; Monocytes Percent Manual 7 % (3-9); Myelocytes Percent 2 %; Neutrophils Absolute Manual 9.93 K/mm3 (1.7-7.2); Neutrophils Percent Manual 68 % (46-73); Ovalocytes 1+ (NORMAL); Platelet Estimate Increased (Adequate); Total Cells Counted 100
[2023-05-21 06:41] LABS: Schistocytes Rare (NORMAL)
[2023-05-21] MEDS: busPIRone HCL 10 MG TABLET PO (08:37)
[2023-05-21] MEDS: DOXYCYCLINE HYCLATE 100 MG TABLET PO (08:37)
[2023-05-21] MEDS: CITALOPRAM HYDROBROMIDE 20 MG TABLET 40 MG PO (08:37)
[2023-05-21] MEDS: PANTOPRAZOLE 40 MG TABLET PO (08:37)
[2023-05-21] MEDS: MAGNESIUM OXIDE 400 MG TABLET PO (08:37)
--- NOTE | 2023-05-21 10:40 | PM.DS ---
DS: Admitting Diagnosis Discharge Date 05/21/23 Admitting Diagnosis Left leg pain DS: Discharge Diagnosis Discharge Diagnosis (1) Cellulitis: Code(s): L03.90 - Cellulitis, unspecified Status: Acute (2) Hypochromic microcytic anemia: Code(s): D50.9 - Iron deficiency anemia, unspecified Status: Acute (3) History of gastric bypass: Code(s): Z98.84 - Bariatric surgery status Status: Acute DS: Summary Hospital Course Reason for hospitalization: 43-year-old female with history of obesity status past gastric bypass surgery is presenting with lower extremity warmth and was currently being treated for possible cellulitis. Please see H&P for details Hospital Course: Patient was seen at [facility] prior to admission and diagnosed with cellulitis and discharged on Doxycycline. She presented here for worsening left lower leg symptoms. She was started on vancomycin and Zosyn 05/17. Left foot MRI negative for osteomyelitis. Decadron + lasix given x 2. Ortho consulted and appreciate their input. BCx NGTD. MRSA screen negative. UCx mixed jacque. Cr increased to 1.1 (was 0.6 the day before). The left leg erythema had almost completely resolved. WBC was normal on admission but climbed to 14K felt related to steroids. CRP was much improved. She was changed back to oral doxycycline.?She had an incidental finding of hemoglobin 7.8 with unknown baseline.?Hgb remained stable in the 7-8 range. B12 and Folate levels normal. Iron studies consistent with iron deficiency anemia.? She received IV iron and is now on oral iron replacement with ferrous fumarate. Left LE venous doppler negative for DVT. She had clinical improvement and was able to be discharged home on 05/21/23. Status at Discharge Cognitive/behavioral status at discharge: Stable Time Spent with Patient Time attestation: Total time spent providing and/or coordinating discharge services: 35 minutes Time spent: Greater than 30 minutes Exam Narrative: AF 97.6 140/85 73 16 100% Gen - NARD Chest - CTA bilaterally, nml RR CV - RRR S1/S2 Abd - Soft, NT/ND, Positive BS Ext - LLE with trace-1+ pitting edema. Psych - Nml mood and affect Skin - No erythema to the left LE. at the tip of the left great toe, dark red nonblanchable erythema well demarcated and without pain. At the plantar base of the left great toe, small <1cm oval light brown lesion with dried white area centrally DS: Data Data Completed and Pending Labs on day of discharge: Labs from last 24 hours 05/21/23 05:11 WBC 14.4 H RBC 4.16 L Hgb 8.2 L Hct 29.2 L MCV 70.2 L MCH 19.7 L MCHC 28.1 L RDW 17.9 H Plt Count 427 H MPV 10.1 Immature Gran % (Auto) Not Reportable Neut % (Auto) Not Reportable Lymph % (Auto) Not Reportable Walton % (Auto) Not Reportable Eos % (Auto) Not Reportable Baso % (Auto) Not Reportable Lymph # (Auto) Not Reportable Walton # (Auto) Not Reportable Eos # (Auto) Not Reportable Baso # (Auto) Not Reportable Abs Immat Gran (auto) Not Reportable Absolute Neuts (auto) Not Reportable Absolute Nucleated RBC Not Reportable Total Counted 100 Neutrophils % (Manual) 68 Band Neutrophils % 1 Lymphocytes % (Manual) 13.0 L Monocytes % (Manual) 7 Eosinophils % (Manual) 1 Basophils % (Manual) 2 H Metamyelocytes % 6 Myelocytes % 2 Nucleated RBC % Not Reportable Abs Neuts (Manual) 9.93 H Abs Lymphs (Manual) 1.87 Abs Monocytes (Manual) 1.00 H Absolute Eos (Manual) 0.14 Abs Basophils (Manual) 0.28 H Platelet Estimate Increased Large Platelets Present Giant Platelets Present Hypochromasia 2+ Ovalocytes 1+ Schistocytes Rare Sodium 144 Potassium 3.4 Chloride 111 H Carbon Dioxide 29 Anion Gap 4 L BUN 13 Creatinine 1.20 H Estim Creat Clear Calc 58 Estimated GFR 49 L Glucose 102 Calcium 8.8 Preliminary micro results at discharge 05/17/23 23:58 Blood Culture - Preliminary Blood 05/17/23 23:38
--- NOTE | 2023-05-21 11:41 | PM.CNOR ---
Assessment and Plan Assessment and plan (1) Cellulitis: Qualifiers: Site of cellulitis: extremity Site of cellulitis of extremity: lower extremity Laterality: left Qualified Code(s): L03.116 - Cellulitis of left lower limb Code(s): L03.90 - Cellulitis, unspecified Status: Acute Assessment and Plan: New patient evaluation for chief complaint left foot cellulitis. History, physical exam and radiographs/ MRI reviewed with the patient. Discussed the condition, nature, etiology and course of natural history with the patient. Treatment options were reviewed. Risks and benefits of each as well as alternatives reviewed. The patient's questions were answered. Conservative treatment ice, compression and elevation. continue antibiotic regimen. Asked to see patient for possible deeper involvement of infection with left foot and toes. She has curious blister on the plantar and lateral aspect of the hallux which is not draining. It appears benign. It may have been result of swelling and fluid that accumulated with her compression stockings. Should resolve with conservative treatment and observation. Radiographs and MRI negative for any deeper infection. Exam findings show only lymphedema but no other signs of infection. Follow antibiotic regimen. Patient needs establishment with a primary care physician for follow-up and further medical needs. (2) Lymphedema of left lower extremity: Code(s): I89.0 - Lymphedema, not elsewhere classified Status: Acute History of Present Illness HPI Consult date: 05/21/23 Requesting physician: Mary Suh DO Chief complaint: Cellulitis Left Lower Extremity Narrative: 43-year-old woman history of gastric bypass 14 years ago and adolescent onset left lower extremity lymphedema presented to the hospital with worsening cellulitis left leg and foot. blister appeared over the plantar and lateral aspect of the hallux. Patient started on IV antibiotics. Asked to see for possible deeper infection. Patient states she has been hospitalized about 7 times in the past for cellulitis that requires IV antibiotics. The last was several years ago. She also has recurrent cellulitis treated with oral antibiotics that usually resolves the issue. Lymphedema since she was in the 7th grade which they told her was congenital. Not currently treated or followed regularly for medical care. Review of Systems Constitutional: Constitutional: Denies fever(s) Eyes: Eyes: Denies blurry vision ENT: Reports Normal hearing present Cardiovascular: Cardiovascular: Denies chest pain and Denies dyspnea Respiratory: Respiratory: Denies dyspnea and Denies wheezing Gastrointestinal: Gastrointestinal: Denies abdominal pain Genitourinary: Genitourinary: Denies urinary urgency Musculoskeletal: Musculoskeletal: Reports as per HPI and Denies numbness Integumentary/Breasts: Skin/Breast: Denies changing lesions and Denies sores Neurologic: Reports Normal hearing present, Denies behavioral changes, Denies confusion, Denies numbness and Denies convulsions Psychiatric: Psychiatric: Denies behavioral changes, Denies confusion and Denies hallucinations Endocrine: Endocrine: Denies heat intolerance Hematologic/Lymphatic: Hematologic/Lymphatic: Denies easy bleeding Allergic/Immunologic: Allergic/Immunologic: Denies wheezing [facility] Past Medical History Medical History (Updated 05/21/23 @ 11:46 by Vik Jackson MD) Lymphedema of left lower extremity Family History Family History Other Diabetes mellitus Social History Social History Smoking status: Never smoker Alcohol intake: never Substance use type: other Other substance usage details: THC Last use: 05/15/2023 Lack of Transportation: No Lack of Food: Never True Current Housing: I Have Housing Concerned
[2023-05-21 14:00] VITALS: BP 117/73; PULSE 66; RESP 18; TEMP 36.9; O2SAT 100
== END 2023-05-21 15:15 | disposition home or self-care (01) | DRG 603 ==
LOC: ANHED 05-18 00:44 → ANH3MED 05-18 01:12
PROVIDERS: Internal Medicine; Student in an Organized Health Care Education/Training Program; Admitting Provider Internal Medicine; Emergency Provider Emergency Medicine; Visit Provider Internal Medicine
DX: L03.116 Cellulitis of left lower limb (principal); I89.0 Lymphedema, not elsewhere classified; S90.422A Blister (nonthermal), left great toe, initial encounter; X58.XXXA Exposure to other specified factors, initial encounter; D50.9 Iron deficiency anemia, unspecified; Z98.84 Bariatric surgery status; E66.9 Obesity, unspecified; Z68.35 Body mass index [BMI] 35.0-35.9, adult
CPT/HCPCS: 36415; 36569; 73590; 73610; 73630; 73718; 80048; 80053; 80202; 81001; 82306; 82607; 82728; 82746; 83036; 83540; 83550; 83605; 83735; 84100; 84145; 84443; 85025; 85652; 86140; 87040; 87081; 87086; 87088; 93971; 96361; 96365; 96366; 96367; 96372; 96374; 96375; 96376; 99285; A9270; C1751; G0378; J1756; J1940; J2270; J2405; J2543; J3370; J3475; J3480; J7030; J7040; J7050; J8540

== ENCOUNTER 2023-10-11 10:38 | Emergency (ER) | payer OTHER, SELFPAY ==
[2023-10-11 10:51] VITALS: BP 118/79; PULSE 94; RESP 16; TEMP 36.9; O2SAT 100
--- NOTE | 2023-10-11 11:15 | ED.GENADULT ---
HPI - General Adult General Chief complaint: Upper Respiratory Infection Stated complaint: Sore Throat/Ears Source: patient Mode of arrival: ambulatory Limitations: no limitations History of Present Illness HPI narrative: Patient presents for evaluation of sore throat for the last 3 days. She also reports a headache, fever and generalized body aches. No nausea, vomiting, diarrhea. She is taking ibuprofen for her symptoms. History of tonsillectomy. She does not smoke. Related Data Home Medications Medication Instructions Recorded Confirmed buspirone 10 mg tablet 10 mg PO BID 05/18/23 10/11/23 citalopram 40 mg tablet 40 mg PO QAM 05/18/23 10/11/23 etonogestrel 68 mg subdermal 1 implant subdermal PER PKG DIR 05/18/23 10/11/23 implant (Nexplanon) trazodone 100 mg tablet 100 mg PO QHS PRN Insomnia 05/18/23 10/11/23 Allergies Allergy/AdvReac Type Severity Reaction Status Date / Time codeine Allergy Unknown ITCHING Verified 02/20/15 10:45 promethazine Allergy Unknown Unknown Verified 05/17/23 22:39 Review of Systems Review of Systems: CONSTITUTIONAL: Reports fever. Denies chills, or sweats. EYES: Denies visual changes, redness, or discharge. ENT: Reports sore throat. Denies otalgia. CARDIOVASCULAR: Denies chest pain, palpitations, or edema. RESPIRATORY: Denies cough or dyspnea. GASTROINTESTINAL: Denies abdominal pain, nausea, vomiting, or diarrhea. GENITOURINARY: Denies dysuria or hematuria. SKIN: Denies rash or itching. MUSCULOSKELETAL: reports generalized body aches. NEUROLOGIC: Reports headache. Denies numbness, dizziness, or weakness. PSYCHIATRIC: Denies anxiety or depression. [facility] Past Medical History Medical History Lymphedema of left lower extremity Surgical History Surgical History History of tonsillectomy Family History Family History Other Diabetes mellitus Social History Social History Smoking status: Never smoker Alcohol intake: never Substance use type: other Other substance usage details: THC Last use: 05/15/2023 Lack of Transportation: No Lack of Food: Never True Current Housing: I Have Housing Concerned About Future Housing: No Difficulty Paying Gas/Electric Bills: No Difficulty Paying for Meds: No Currently Unemployed: No Education: High School Diploma/GED Difficulty w/ Childcare or Family Care: No Spiritual care concerns: No Exam Narrative: GENERAL: Well-appearing, well-nourished, and in no acute distress. HEAD: Normocephalic, atraumatic. EYES: PERRLA and EOMI. ENT: Nares clear, no rhinorrhea or epistaxis. Mucous membranes moist. Tonsils are surgically absent. Posterior pharyngeal erythema without exudate. Uvula is midline.. Bilateral TMs pearly menard nonbulging NECK: Supple. No adenopathy or masses. No carotid bruits or JVD CHEST: Clear to auscultation. No respiratory distress. No wheezes rales or rhonchi HEART: Regular rate and rhythm. No murmur heard. Normal peripheral pulses. ABDOMEN: Soft, nontender, nondistended, normal active bowel sounds. EXTREMITIES: Normal range of motion. No edema. SKIN: Warm, dry, no rash. NEURO: No focal deficits. Alert and oriented x3. PSYCH: Normal mood and affect. Course Course Emergency Course: This is a 43-year-old female who presented for evaluation of sore throat. Rapid strep positive. Will treat with Augmentin as it has been effective in the past. Follow-up with primary provider. [id number] agents for symptom management. Go to the ER for worsening symptoms. [facility] Level of Care: Express Care Visit Vital Signs Vital signs: Vital Signs Temperature 36.9 C 10/11/23 10:51 Pulse Rate 94 10/11/23 10
== END 2023-10-11 11:15 | disposition home or self-care (01) ==
PROVIDERS: Emergency Provider Nurse Practitioner
DX: J02.0 Streptococcal pharyngitis (principal)
CPT/HCPCS: 87880; 99213; G0463